=== PATIENT | male | born 1985 | race Caucasian/White ===

== ENCOUNTER → 2021-09-26 | Day surgery (SDC) | payer OTHER ==
[~2021-09-26] VITALS: Ht 182.9 cm; Wt 86.2 kg
[~2021-09-26] MED LIST: LAMICTAL200 MG PO; ZONEGRAN100 MG PO
[2021-09-26 07:19] LABS: BASOPHIL 1.4 % (0-2); EOSINOPHIL 2.1 % (0-5); HCT 41.7 % (42.0-52.0); HGB 14.5 g/dl (13.2-18.0); LYMPHOCYTE 20.8 % (15-48); MCH 30.7 pg (25.0-31.0); MCHC 34.8 g/dL (32.0-36.0); MCV 88.3 fL (78.0-100.0); MONOCYTE 12.1 % (0-12); MPV 9.7 fL (6.0-9.5); NEUTROPHIL 62.9 % (41-80); NRBC 0; PLT 235 K/uL (150-400); RBC 4.72 M/uL (4.70-6.00); RDW 12.5 % (11.5-14.0); WBC 5.7 K/uL (4.0-10.5)
[2021-09-26 07:39] LABS: BUN/CREAT RATIO (CALC) 15.8 RATIO; CREATININE 1.01 mg/dL (0.67-1.17); POTASSIUM 3.6 mmol/L (3.5-5.1)
== END | disposition home or self-care (01) ==
LOC: FAS 06:37
PROVIDERS: Anesthesiology; Oral & Maxillofacial Surgery
DX: K02.9 Dental caries, unspecified (principal); K04.7 Periapical abscess without sinus; K01.1 Impacted teeth; G40.909 Epilepsy, unspecified, not intractable, without status epilepticus
CPT/HCPCS: D7210; D7240; 36415; 80048; 85025; J1100; J2250; J2704; J2710; J3010; J7120